=== PATIENT | male | born 1940 | race Caucasian/White ===

== ENCOUNTER 2024-04-05 15:49 | Inpatient (IN) ==
[2024-04-06 02:10] LABS: Hematocrit 20.5 % (38-53); Hemoglobin 6.6 g/dL (13.2-16.3)
[2024-04-06 08:30] LABS: ABS Eosinophils 0.3 10^3/uL (0.0-0.5); ABS Lymphocytes 1.3 10^3/uL (1.0-4.8); ABS Monocytes 0.7 10^3/uL (0.0-1.1); ABS Neutrophils 8.3 10^3/uL (1.5-7.6); Corrected Retic Count 2.3 % (0.5-1.5); Hematocrit 24.4 % (38-53); Hematocrit for Retic CNT 24.4 % (38-53); Hemoglobin 8.1 g/dL (13.2-16.3); Immature Retic Fraction 0.51; Lymphocyte % 12.6 %; Mean Corpuscular Hemoglobin 25.6 pg (27-33); Mean Corpuscular Hgb Conc 33.2 g/dL (31-36); Mean Corpuscular Volume 77.1 fL (80-97); Mean Platelet Volume 7.1 fL (7.5-11.2); Platelet Count 209 10^3/uL (150-450); RBC Retic Count 3.16 10^6/ul (4.06-5.63); Red Blood Count 3.16 10^6/uL (4.06-5.63); Red Cell Distribution Width 16.6 % (12-17); White Blood Count 10.6 10^3/uL (3.6-10.2)
[2024-04-06] MEDS: Sodium Bicarb 650 mg (ANTACID) TAB PO SCH (09:24)
[2024-04-06] MEDS: Ferric Gluconate IV 250 MG in NS 0.9% 250 ml 200 ML IVPB SCH (09:24)
[2024-04-06 10:14] LABS: Albumin 3.4 g/dL (3.2-5.2); Albumin/Globulin Ratio 1.4 (1-3); Calcium 7.9 mg/dL (8.6-10.3); Creatinine, Serum 5.2 mg/dL (0.67-1.17); Globulin 2.4 g/dL (2-4); Magnesium 2.4 mg/dL (1.9-2.7); Potassium 4.2 mmol/L (3.5-5.0); Total Bilirubin 0.8 mg/dL (0.2-1.0); Total Protein 5.8 g/dL (6.4-8.9); eGFR CKD-EPI 10.4 (>60)
[2024-04-07 06:23] LABS: ABS Eosinophils 0.3 10^3/uL (0.0-0.5); ABS Lymphocytes 1.5 10^3/uL (1.0-4.8); ABS Monocytes 0.9 10^3/uL (0.0-1.1); ABS Neutrophils 8.4 10^3/uL (1.5-7.6); Eosinophil % 2.9 %; Hematocrit 22.6 % (38-53); Hemoglobin 7.4 g/dL (13.2-16.3); Lymphocyte % 13.2 %; Mean Corpuscular Hemoglobin 25.3 pg (27-33); Mean Corpuscular Hgb Conc 32.6 g/dL (31-36); Mean Corpuscular Volume 77.4 fL (80-97); Mean Platelet Volume 7.3 fL (7.5-11.2); Platelet Count 204 10^3/uL (150-450); Red Blood Count 2.92 10^6/uL (4.06-5.63); Red Cell Distribution Width 17.2 % (12-17); White Blood Count 11.1 10^3/uL (3.6-10.2)
[2024-04-07 06:38] LABS: Calcium 7.9 mg/dL (8.6-10.3); Creatinine, Serum 5.2 mg/dL (0.67-1.17); Magnesium 2.2 mg/dL (1.9-2.7); Potassium 3.9 mmol/L (3.5-5.0); eGFR CKD-EPI 10.4 (>60)
[2024-04-07] MEDS ORDERED: Naloxone 0.4 mg VIAL 0.4 mg/ml 1 ml VIAL IV PUSH PRN (07:56)
[2024-04-07] MEDS ORDERED: Flumazenil 0.5 mg/5 ml 0.1 MG/ML 5 ml VIAL IV PRN (07:56)
[2024-04-07] MEDS: Pantoprazole VIAL 40 MG VIAL IV SCH (10:00)
[2024-04-07] MEDS: Lactated Ringers 1000 ml BAG 1,000 ML IV ONE (10:30)
[2024-04-07] MEDS: Dextrose 50% Syringe 50 ml 25 GM/50 ML SYRINGE IV PUSH PRN (10:42)
[2024-04-07] MEDS ORDERED: Midazolam 5 mg/5 ml VIAL 1 mg/ml 5 ml VIAL (5 mg) ONE (16:38)
[2024-04-07] MEDS ORDERED: fentaNYL 100 mcg/2 ml 50 MCG/ML VIAL ONE (16:38)
[2024-04-07] MEDS: Ondansetron 4 mg VIAL 2 MG/ML 2 ml VIAL IV ONE (19:51)
[2024-04-07] MEDS: Midazolam 10 mg/10 ml VIAL 1 mg/ml 10 ml VIAL (10 mg) IV SLOW PU ONE (19:51)
[2024-04-07] MEDS: fentaNYL 100 mcg/2 ml 50 MCG/ML VIAL IV SLOW PU ONE (19:51)
[2024-04-08 06:33] LABS: ABS Eosinophils 0.3 10^3/uL (0.0-0.5); ABS Monocytes 0.9 10^3/uL (0.0-1.1); ABS Neutrophils 7.8 10^3/uL (1.5-7.6); ABS Nucleated RBC 0.01 10^3/ul; Eosinophil % 3.1 %; Hematocrit 20.9 % (38-53); Mean Corpuscular Hemoglobin 26.5 pg (27-33); Mean Corpuscular Hgb Conc 33.5 g/dL (31-36); Mean Platelet Volume 6.9 fL (7.5-11.2); Nucleated Red Blood Cells % 0.1 %/100WBC (0.0-0.8); Platelet Count 192 10^3/uL (150-450); Red Blood Count 2.64 10^6/uL (4.06-5.63); Red Cell Distribution Width 17.6 % (12-17); White Blood Count 10.1 10^3/uL (3.6-10.2)
[2024-04-08 06:55] LABS: Calcium 7.6 mg/dL (8.6-10.3); Creatinine, Serum 5.09 mg/dL (0.67-1.17); Magnesium 2.2 mg/dL (1.9-2.7); Potassium 4.2 mmol/L (3.5-5.0); eGFR CKD-EPI 10.7 (>60)
[2024-04-08] MEDS: Polyethylene Glycol 3350 17 GM PACKET PO ONE (09:46)
[2024-04-08] MEDS: Pantoprazole VIAL 40 MG VIAL IV SCH (20:21)
[2024-04-09 06:21] LABS: ABS Eosinophils 0.4 10^3/uL (0.0-0.5); ABS Lymphocytes 1.1 10^3/uL (1.0-4.8); ABS Neutrophils 9.4 10^3/uL (1.5-7.6); ABS Nucleated RBC 0.01 10^3/ul; Eosinophil % 3.2 %; Hemoglobin 6.8 g/dL (13.2-16.3); Lymphocyte % 9.5 %; Mean Corpuscular Hgb Conc 32.5 g/dL (31-36); Mean Corpuscular Volume 79.9 fL (80-97); Mean Platelet Volume 7.5 fL (7.5-11.2); Platelet Count 184 10^3/uL (150-450); Red Blood Count 2.62 10^6/uL (4.06-5.63); Red Cell Distribution Width 17.7 % (12-17); White Blood Count 11.9 10^3/uL (3.6-10.2)
[2024-04-09 06:38] LABS: Calcium 7.5 mg/dL (8.6-10.3); Creatinine, Serum 5.14 mg/dL (0.67-1.17); Magnesium 2.1 mg/dL (1.9-2.7); Potassium 4.3 mmol/L (3.5-5.0); eGFR CKD-EPI 10.5 (>60)
[2024-04-10 00:36] LABS: Hematocrit 31.1 % (38-53); Hemoglobin 9.1 g/dL (13.2-16.3)
[2024-04-10 06:03] LABS: ABS Eosinophils 0.4 10^3/uL (0.0-0.5); ABS Neutrophils 11.3 10^3/uL (1.5-7.6); Eosinophil % 3.1 %; Hematocrit 25.8 % (38-53); Hemoglobin 8.3 g/dL (13.2-16.3); Lymphocyte % 7.4 %; Mean Corpuscular Hemoglobin 26.7 pg (27-33); Mean Corpuscular Hgb Conc 32.4 g/dL (31-36); Mean Corpuscular Volume 82.6 fL (80-97); Mean Platelet Volume 7.5 fL (7.5-11.2); Platelet Count 209 10^3/uL (150-450); Red Blood Count 3.12 10^6/uL (4.06-5.63); Red Cell Distribution Width 20.6 % (12-17); White Blood Count 13.7 10^3/uL (3.6-10.2)
[2024-04-10 06:20] LABS: Calcium 7.8 mg/dL (8.6-10.3); Creatinine, Serum 5.34 mg/dL (0.67-1.17); Magnesium 2.1 mg/dL (1.9-2.7); Potassium 4.5 mmol/L (3.5-5.0); eGFR CKD-EPI 10.1 (>60)
[2024-04-11 05:48] LABS: ABS Eosinophils 0.3 10^3/uL (0.0-0.5); ABS Neutrophils 7.3 10^3/uL (1.5-7.6); Eosinophil % 3.3 %; Hematocrit 26.7 % (38-53); Hemoglobin 8.7 g/dL (13.2-16.3); Lymphocyte % 10.5 %; Mean Corpuscular Hemoglobin 27.3 pg (27-33); Mean Corpuscular Hgb Conc 32.6 g/dL (31-36); Mean Corpuscular Volume 83.7 fL (80-97); Mean Platelet Volume 7.4 fL (7.5-11.2); Platelet Count 211 10^3/uL (150-450); Red Blood Count 3.18 10^6/uL (4.06-5.63); Red Cell Distribution Width 21.6 % (12-17); White Blood Count 9.6 10^3/uL (3.6-10.2)
[2024-04-11 06:03] LABS: Albumin 3.3 g/dL (3.2-5.2); Albumin/Globulin Ratio 1.4 (1-3); Creatinine, Serum 5.35 mg/dL (0.67-1.17); Globulin 2.4 g/dL (2-4); Magnesium 2.1 mg/dL (1.9-2.7); Potassium 4.5 mmol/L (3.5-5.0); Total Bilirubin 0.4 mg/dL (0.2-1.0); Total Protein 5.7 g/dL (6.4-8.9)
[2024-04-11] MEDS ORDERED: Metoclopramide 5 MG/ML VIAL (10 mg) IV PRN (10:44)
[2024-04-11] MEDS ORDERED: Ondansetron 4 mg VIAL 2 MG/ML 2 ml VIAL IV PRN (10:44)
[2024-04-11] MEDS ORDERED: fentaNYL 100 mcg/2 ml 50 MCG/ML VIAL IV PRN (10:44)
[2024-04-11] MEDS ORDERED: Naloxone 0.4 mg VIAL 0.4 mg/ml 1 ml VIAL IV PRN (10:44)
[2024-04-11] MEDS ORDERED: NS 0.45% 1000 ml BAG 1,000 ML IV SCH (11:00)
[2024-04-11] MEDS: Buffered Lidocaine 1% SYRIN 1 ml INTRADERM ONE (14:49)
[2024-04-11] MEDS: Ondansetron 4 mg VIAL 2 MG/ML 2 ml VIAL IV ONE (14:49)
[2024-04-11] MEDS: Acetaminophen IV 1 GM/100ML 1,000 MG/100 ML BAG IV ONE (19:17)
[2024-04-11] MEDS: Lactated Ringers 1000 ml BAG 1,000 ML IV SCH (19:17)
[2024-04-12 05:16] LABS: ABS Eosinophils 0.4 10^3/uL (0.0-0.5); ABS Lymphocytes 1.1 10^3/uL (1.0-4.8); ABS Monocytes 0.9 10^3/uL (0.0-1.1); ABS Neutrophils 7.2 10^3/uL (1.5-7.6); Eosinophil % 4.5 %; Hematocrit 26.6 % (38-53); Hemoglobin 8.5 g/dL (13.2-16.3); Lymphocyte % 11.2 %; Mean Corpuscular Hemoglobin 26.6 pg (27-33); Mean Corpuscular Volume 83.2 fL (80-97); Mean Platelet Volume 7.3 fL (7.5-11.2); Platelet Count 211 10^3/uL (150-450); Red Cell Distribution Width 21.7 % (12-17); White Blood Count 9.7 10^3/uL (3.6-10.2)
[2024-04-12 05:37] LABS: Albumin 3.1 g/dL (3.2-5.2); Albumin/Globulin Ratio 1.4 (1-3); Calcium 8.1 mg/dL (8.6-10.3); Creatinine, Serum 5.58 mg/dL (0.67-1.17); Globulin 2.2 g/dL (2-4); Magnesium 2.1 mg/dL (1.9-2.7); Potassium 4.7 mmol/L (3.5-5.0); Total Bilirubin 0.3 mg/dL (0.2-1.0); Total Protein 5.3 g/dL (6.4-8.9); eGFR CKD-EPI 9.5 (>60)
[2024-04-13 06:41] LABS: ABS Eosinophils 0.4 10^3/uL (0.0-0.5); ABS Monocytes 0.9 10^3/uL (0.0-1.1); ABS Neutrophils 7.6 10^3/uL (1.5-7.6); Eosinophil % 4.4 %; Hematocrit 26.7 % (38-53); Hemoglobin 8.9 g/dL (13.2-16.3); Lymphocyte % 9.8 %; Mean Corpuscular Hemoglobin 27.9 pg (27-33); Mean Corpuscular Hgb Conc 33.5 g/dL (31-36); Mean Corpuscular Volume 83.3 fL (80-97); Mean Platelet Volume 7.4 fL (7.5-11.2); Platelet Count 209 10^3/uL (150-450); Red Cell Distribution Width 21.5 % (12-17); White Blood Count 9.9 10^3/uL (3.6-10.2)
[2024-04-13 07:17] LABS: Calcium 7.9 mg/dL (8.6-10.3); Creatinine, Serum 5.59 mg/dL (0.67-1.17); Potassium 4.9 mmol/L (3.5-5.0); eGFR CKD-EPI 9.5 (>60)
[2024-04-13 13:50] VITALS: BP 141/50
== END 2024-04-13 15:15 | disposition home or self-care (01) | DRG 378 ==
LOC: ED 15:49 → SUATTDRO 18:52 → INTOOBSV 18:52 → EDHOLD 18:52 → MEDTELE 20:03 → SUATTDRO 04-07 10:12
PROVIDERS: ADMIT Internal Medicine; ATTEND Internal Medicine
PROC: O.GIEGD (2024-04-11 15:50)